=== PATIENT | female | born 1975 | race Caucasian/White ===

== ENCOUNTER 2021-11-07 00:17 | Emergency (ER) | payer MEDICAID ==
[~2021-11-07] VITALS: Ht 160 cm; Wt 82.0 kg
[2021-11-07] MEDS ORDERED: KETOROLAC 15MG/ML VIAL IV ONE (01:15)
[2021-11-07 01:32] LABS: BASOPHILS % 0.2 % (0.0-2.0); EOSINOPHILS % 0.2 % (0.0-5.0); HEMATOCRIT. 40.5 % (36.0-48.0); HEMOGLOBIN. 14.2 g/dL (12.0-16.0); LYMPHOCYTES % 10.1 % (20.0-50.0); MEAN CORPUSCULAR HEMOGLOBIN 30.1 pg (28.0-32.0); MEAN PLATELET VOLUME 8.6 fl (7.4-10.4); NEUTROPHILS % 84.5 % (40.0-76.0); PLATELET 247 x1000/uL (130-400); RED BLOOD CELL COUNT 4.71 mill/uL (4.2-5.4); RED CELL DISTRIBUTION WIDTH 13.3 % (11.6-14.6)
[2021-11-07 01:39] LABS: CHLORIDE 108 mEq/L (98-107)
[2021-11-07 02:13] LABS: CLARITY URINE CLEAR (CLEAR); COLOR URINE YELLOW (YELLOW); KETONES URINE NEGATIVE (NEGATIVE); LEUKOCYTE ESTERASE URINE NEGATIVE (NEGATIVE); NITRITE URINE NEGATIVE (NEGATIVE); OCCULT BLOOD URINE 1+ (NEGATIVE); PROTEIN URINE 1+ (NEGATIVE); SPECIFIC GRAVITY URINE 1.007 (1.005-1.030); UROBILINOGEN URINE 0.2 E.U./dL (0.2-1.0)
[2021-11-07] MEDS ORDERED: IBUP-2029 MT (05:24)
[2021-11-07 05:30] VITALS: BP 155/81
[2021-11-07] MEDS ORDERED: IOHEXOL-300 100 ML BOTTLE ONE (06:23)
== END 2021-11-07 05:45 | disposition home or self-care (01) ==
LOC: ER 00:17
DX: S00.83XA Contusion of other part of head, initial encounter (principal); S30.1XXA Contusion of abdominal wall, initial encounter; I10 Essential (primary) hypertension; V49.9XXA Car occupant (driver) (passenger) injured in unspecified traffic accident, initial encounter; Y93.89 Activity, other specified; Y92.89 Other specified places as the place of occurrence of the external cause; Y99.8 Other external cause status
CPT/HCPCS: 36415; 70450; 70486; 71260; 72125; 74177; 80053; 81003; 83690; 85025; 86850; 86880; 86900; 86901; 93005; 96374; 99291; J1885; Q9967